=== PATIENT | male | born 1990 | race Two or more races ===

== ENCOUNTER 2017-04-14 10:43 | Emergency (ER) | payer MEDICAID ==
[~2017-04-14] VITALS: Ht 172.7 cm; Wt 65.8 kg
[2017-04-14 13:09] VITALS: BP 104/68
[2017-04-14] MEDS ORDERED: CYCLOBENZAPRINE HCL 10 MG TAB PO ONE (13:30)
[2017-04-14] MEDS ORDERED: KETOROLAC TROMETH 60MG/2ML VIAL IM ONE (13:30)
== END 2017-04-14 14:37 | disposition home or self-care (01) ==
LOC: ER 10:43
DX: J06.9 Acute upper respiratory infection, unspecified (principal); M54.9 Dorsalgia, unspecified; J45.909 Unspecified asthma, uncomplicated
CPT/HCPCS: 71046; 72100; 96372; 99284; J1885